=== PATIENT | female | born 1985 | race Caucasian/White ===

== ENCOUNTER 2020-07-28 08:06 | Outpatient (CLI) | payer OTHER ==
[2020-07-28 08:48] VITALS: BP 107/63
--- NOTE | 2020-07-28 08:48 | SLEEP CARE CONSULTATION ---
Information from patient questionnaire entered by Laure Santizo. I have reviewed and concur with the information entered by Laure Santizo. This document represents the service I personally performed and the decisions made by , Clarissa Pardo ARNP. History of Present Illness Service Date and Time: 07/28/2020 08 Reason for Visit: New patient Chief Complaint: reports: Unrefreshed sleep, Snoring, Excessive daytime sleepiness, Observed pauses in breathing, Frequent awakenings at night Date of Onset: at least 3 years Usual bedtime: 10 pm Time it takes to fall asleep: 30 minutes Snores at night: Yes Observed to quit breathing while asleep: Yes Sleeps alone due to snoring: No Number of times waking at night: 2 Reasons for waking at night: reports: Choking, Snoring, Gasping for air, Bathroom Toss, Turn, or Twitch while sleeping: Yes Recalls having dreams: Yes Usually gets out of bed at: 6:20 am; weekends 0700 Feels refreshed in the morning: No Morning headache: No Sleepy or fatigued during the day: Yes Ever fallen asleep while driving: No (drowsy driving, no accidents) Takes day naps: No Dreams during day naps: No Prior sleep studies: No Additional HPI information: I had the pleasure of seeing PAT PALMER today regarding the possibility of her having a sleep disorder. Her current complaints are snoring, unrefreshed sleep, pauses in breathing and frequent night awakenings. Her boyfriend has told her that she has pauses in breathing when she sleeps. She did used to snore loudly before she had her tonsils removed. She still snores lightly. She does not wake up feeling rested and is sleepy during the day. She has had some issues with drowsy driving but has never fallen asleep at the wheel. She states she does not wake up with headaches. She rarely gets to take a nap. She has a history of asthma, anxiety, depression and PTSD. She states her father snores loudly but has never been tested for sleep disorder. 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 Patient is and lives in [place]. Have you smoked in the past 12 months: No Cigarettes per day (20/pack): 20 Years of smokin Quit date: 2017 Smoking Pack Years: 10.0 Alcohol use: Yes Alcohol amount and frequency: 2 drinks once a week Caffeine use: No Family History Family history of sleep disordered breathing: Yes (father) Family Hx Sleep Apnea: Father: Snoring Allergies and Home Medications Drug allergies reviewed: Yes (NKDA) Home medication list reviewed: Yes Allergy and home medication list: Sertraline 100 mg Microgestin Fe 06/10 ( control) Womans One A Day 2000 mg fish oil Review of Systems Weight loss over past 5 years: 40 Cardiovascular: reports: palpitations. denies: high blood pressure Gastrointestinal: denies: heartburn Neurological: denies: headaches, seizure, head trauma Psychiatric: reports: anxiety, depression, mood disorder (PTSD), other (PTSD) Ear/Nose/Throat: reports: nose bleeds, dry mouth/throat (nearly every morning), tonsillectomy, wisdom teeth removed Endocrine: denies: thyroid disease Immunologic: reports: allergies to food or environment (dust) Physical Exam Blood Pressure: 107/63 Cuff size: wrist Heart Rate: 70 O2 Saturation: 100 Height: 5 ft 4 in Weight: 184 lb Body Mass Index: 31.6 BMI Classification: Obese Neck circumference: 13.8 (inches) Nostrils: patent to airflow Mouth and throat: normal Soft palate: long Uvula visualization: 100% Mallampati Class I Tongue: enlarged in size with teeth mabry on lateral edges Tonsils: absent bilaterally Chin and jaw: normal size and position Neck: normal w/o lymphadenopathy or thyromegaly Heart: regular rate and rhythm Lungs: clear bilaterally Impression and Plan 1. Suspected Obstructive Sleep Apnea-Hypopnea Syndrome, as suggested by a history of loud and irregular snoring, observed cessation of breath while asleep, gasping or choking in sleep, frequent awakening during the night, unrefreshed sleep, cognitive impairment, and excessive daytime sleepiness. Narrow oropharynx and obesity are common predisposing factors for obstructive sleep apnea-hypopnea syndrome. I recommend proceeding to polysomnography to confirm the diagnosis and to assess severity. If the patient has significant sleep disordered breathing, a manual CPAP titration study will also be performed to find the optimal treatment pressure. I informed the patient of what the sleep studies involve and after some discussion, obtained agreement to proceed. The pathophysiology of obstructive sleep apnea-hypopnea syndrome was discussed with the patient and health risks of cardiovascular and cerebrovascular disease if not treated. 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 Patient agreed to plan. [facility] drowsy driving brochure given. * Schedule polysomnography +- manual CPAP titration study and return in 1-2 weeks after the study to discuss result and initiate therapy. * Avoid long distance driving or driving when feeling sleepy. * Avoid alcohol, sedative and muscle relaxant around bedtime. * Attempt to lose weight. * Review instructions provided by trained office staff on how to prepare for the sleep study. * Return for follow-up after sleep study completed. Counseling Topics: Weight loss health impact Visit Type: In Office Time Spent with Patient (minutes): 30 Provider Statement: I spent 100% of the Face to Face Visit with the patient with greater than 50% spent counseling the patient and coordination of care.
== END 2020-07-28 08:07 | disposition home or self-care (01) ==
LOC: SC 08:06
PROVIDERS: ATTEND Nurse Practitioner Family
DX: R06.83 Snoring (principal); R06.81 Apnea, not elsewhere classified; G47.8 Other sleep disorders; R41.89 Other symptoms and signs involving cognitive functions and awareness; G47.10 Hypersomnia, unspecified; E66.9 Obesity, unspecified; Z68.31 Body mass index [BMI] 31.0-31.9, adult; Z87.891 Personal history of nicotine dependence
CPT/HCPCS: 99203; 99212

== ENCOUNTER 2020-09-09 16:34 | Outpatient (CLI) | payer OTHER ==
--- NOTE | 2020-09-09 17:15 | SLEEP CARE CONSULTATION ---
Information from patient questionnaire entered by Cooper Villanueva. I have reviewed and concur with the information entered by Cooper Villanueva. This document represents the service I personally performed and the decisions made by , Clarissa Pardo ARNP. History of Present Illness Service Date and Time: 09/09/2020 1634 Initial [place] Sleepiness Scale score: 15 (in 2020) Current [place] Sleepiness Scale score: 19 Additional HPI information: PAT PALMER returns for follow up and results of the recently performed polysomnography. The patient was informed of the following findings: no significant sleep disordered breathing with an average AHI of 0.7 and radha oxygen saturation of 88%. I explained the pathophysiology behind obstructive sleep apnea. Patient does not have sleep apnea and was advised how weight gain could increase the risk of developing sleep apnea in the future. I strongly encouraged the patient to lose weight. Patient has light to loud snoring. Snoring can be reduced by weight loss. Weight loss is best achieved with diet consult. Patient instructed to contact PCP for referral. Snoring can also be treated with an oral appliance from a dentist. Advised to check insurance coverage. In addition, an ENT evaluation can be do to see if other treatment is indicated. Patient counseled not drink alcohol less than 4 hours before bedtime as it can increase snoring and apnea. Patient was cautioned about risks of drowsy driving until sleepiness symptoms resolve. Sleep Study - Results Type of Sleep Study: Polysomnography ([place]) Prior sleep studies: No Polysomnography/Home Sleep Study results: Interpretation: In-laboratory Attended Nocturnal Polysomnography. The patient had good sleep efficiency. The sleep architecture was relatively normal as well considering the first night effect. Respiratory monitoring showed no evidence of sleep-disordered breathing (AHI = 0.7) or hypoxia (radha oxygen satul'ation of 88 .0%). The patient slept mostly supine. Snoring was light to loud in intensity. There was no periodic leg movement of sleep. Cardiac rhythm was normal sinus rhythm. No abnormal behavior (parasomnia) observed during the night. Allergies and Home Medications Home medication list reviewed: Yes (no changes) Review of Systems Review of systems same as previous: Yes (no changes) Physical Exam Heart Rate: 69 O2 Saturation: 95 Height: 5 ft 4 in Weight: 184 lb Body Mass Index: 31.6 BMI Classification: Obese Impression and Plan Snoring but no significant sleep disordered breathing. Patient advised that often weight loss will reduce snoring as well as apnea risk. An oral appliance can also be used for snoring. This would require a dental consultation. Patient cautioned not to use other online appliances as can cause bite issues. A list of accredited dentists in [facility] and one local dentist who makes oral appliances is in the office. Patient is advised to check if insurance will cover. An ENT consult can also be helpful to determine if any other treatment is an option. * Attempt to lose weight * Avoid alcohol consumption near bedtime * The patient is cautioned about driving until sleepiness is completely resolved. * Return in as needed for follow up. Counseling Topics: Weight loss health impact Visit Type: In Office Time Spent with Patient (minutes): 11 Provider Statement: I spent 100% of the Face to Face Visit with the patient with greater than 50% spent counseling the patient and coordination of care.
== END 2020-09-09 16:35 | disposition home or self-care (01) ==
LOC: SC 16:34
PROVIDERS: ATTEND Nurse Practitioner Family
DX: G47.10 Hypersomnia, unspecified (principal); R06.81 Apnea, not elsewhere classified; G47.8 Other sleep disorders; R41.89 Other symptoms and signs involving cognitive functions and awareness; E66.9 Obesity, unspecified; Z68.31 Body mass index [BMI] 31.0-31.9, adult
CPT/HCPCS: 99212

== ENCOUNTER 2021-09-20 11:27 | Emergency (ER) | payer OTHER ==
[2021-09-20] MEDS ORDERED: KETOROLAC 60 MG/2 ML VIAL IM STA (11:53)
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
[2021-09-20 13:47] VITALS: BP 110/72
== END 2021-09-20 14:00 | disposition home or self-care (01) ==
LOC: ED 11:27
DX: S13.4XXA Sprain of ligaments of cervical spine, initial encounter (principal); S80.812A Abrasion, left lower leg, initial encounter; V49.00XA Driver injured in collision with unspecified motor vehicles in nontraffic accident, initial encounter
CPT/HCPCS: 96372; 99282; 99284

== ENCOUNTER 2021-10-19 08:00 | Outpatient (CLI) | payer BC, OTHER ==
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
== END 2021-10-19 23:59 | disposition home or self-care (01) ==
LOC: DI.N 08:00
PROVIDERS: ATTEND Physician Assistant Medical
DX: R10.9 Unspecified abdominal pain (principal)

== ENCOUNTER 2023-06-15 09:24 | Outpatient (CLI) | payer OTHER ==
[2023-06-15 12:03] LABS: BASOPHILS # (AUTO) 0.1 10^3/uL (0.0-0.1); BASOPHILS % (AUTO) 0.6 %; EOSINOPHILS % (AUTO) 0.1 %; HCT - HEMATOCRIT 44.5 % (37.0-47.0); HGB - HEMOGLOBIN 14.4 g/dL (12.0-16.0); LYMPHOCYTES # (AUTO) 2.5 10^3/uL (1.5-3.5); LYMPHOCYTES % (AUTO) 25.9 %; MEAN CORPUSCULAR HEMOGLOBIN 29.2 pg (27.0-31.0); MEAN CORPUSCULAR HGB CONC 32.4 g/dL (32.0-36.0); MEAN CORPUSCULAR VOLUME 90.3 fL (81.0-99.0); MEAN PLATELET VOLUME 10.1 fL (7.9-10.8); MONOCYTES # (AUTO) 0.7 10^3/uL (0.0-1.0); NEUTROPHILS # (AUTO) 6.5 10^3/uL (1.5-6.6); NEUTROPHILS % (AUTO) 66.3 %; PLT - PLATELET COUNT 417 10^3/uL (130-450); RED BLOOD COUNT 4.93 10^6/uL (4.20-5.40); RED CELL DISTRIBUTION WIDTH 12.2 % (12.0-15.0); WHITE BLOOD COUNT 9.8 x10^3/uL (4.8-10.8)
[2023-06-15 12:04] LABS: ESTIMATED AVERAGE GLUCOSE 91 mg/dL (70-100); HEMOGLOBIN A1c% 4.8 % (4.27-6.07)
[2023-06-15 12:14] LABS: ALBUMIN 4.5 g/dL (3.2-5.5); ALBUMIN/GLOBULIN RATIO 1.3 (1.0-2.2); ALKALINE PHOSPHATASE 62 IU/L (42-121); ALT ALANINE AMINOTRANSFERASE 11 IU/L (10-60); AST ASPARTATE AMINOTRANSFERASE 14 IU/L (10-42); BILIRUBIN,TOTAL 0.5 mg/dL (0.2-1.0); BUN - BLOOD UREA NITROGEN 15 mg/dL (6-20); CALCIUM 9.6 mg/dL (8.5-10.3); CARBON DIOXIDE - CO2 28 mmol/L (21-32); CHLORIDE 103 mmol/L (101-111); CHOL/HDL RATIO 3.2 (<4.4); CHOLESTEROL 205 mg/dL; CREATININE 0.7 mg/dL (0.6-1.3); GFR - MDRD 94 (>89); GLUCOSE 97 mg/dL (74-104); HDL CHOLESTEROL 65 mg/dL; LDL CHOLESTEROL,CALCULATED 122 mg/dL; LDL/HDL RATIO 1.9 (<4.4); POTASSIUM 3.9 mmol/L (3.5-4.5); SODIUM 137 mmol/L (135-145); TRIGLYCERIDES 88 mg/dL (48-352); VLDL CHOLESTEROL 18 mg/dL
[2023-06-15 12:25] LABS: THYROID STIMULATING HORMONE 3.17 uIU/mL (0.34-5.60)
[2023-06-16 06:12] LABS: RPR Non Reactive (Non Reactive)
[2023-06-16 07:10] LABS: HBsAG SCREEN Negative (Negative); HIV SCREEN 4TH GENERATION Non Reactive (Non Reactive)
[2023-06-16 08:10] LABS: HCV AB Non Reactive (Non Reactive); VARICELLA-ZOSTER AB IGG <135 index (Immune >165)
== END 2023-06-15 09:25 | disposition home or self-care (01) ==
LOC: LAB.N 09:24
PROVIDERS: ATTEND Obstetrics & Gynecology
DX: Z32.01 Encounter for pregnancy test, result positive (principal); E66.9 Obesity, unspecified; R53.83 Other fatigue; F41.9 Anxiety disorder, unspecified; F32.A Depression, unspecified
CPT/HCPCS: 36415; 80053; 80061; 83036; 83721; 84443; 84702; 85025; 86592; 86762; 86787; 86803; 86850; 86900; 86901; 87340; 87389

== ENCOUNTER 2023-06-19 09:00 | Outpatient (CLI) | payer OTHER | END 2023-06-19 09:01 | disposition home or self-care (01) | LOC: LAB.N 09:00 | PROVIDERS: ATTEND Nurse Practitioner | DX: O03.9 Complete or unspecified spontaneous abortion without complication (principal) | CPT/HCPCS: 36415; 84702 ==